=== PATIENT | male | born 1990 | race Caucasian/White ===

== ENCOUNTER 2018-04-07 13:18 | Day surgery (SDC) | payer BC ==
[~2018-04-07 13:18] MED LIST: Lidocaine 1% PF 5 ML VIAL ONE; PROPOFOL 200 MG/20 ML VIAL ONE
[2018-04-07] MEDS ORDERED: Midazolam HCl 2 mg/2 ml Vial ONE (13:59)
[2018-04-07] MEDS ORDERED: Fentanyl 100 MCG/2 ML VIAL ONE (13:59)
--- NOTE | 2018-04-07 14:19 | CON ---
DATE OF CONSULTATION: 04/07/2018 CHIEF COMPLAINT: "Pill stuck in my esophagus." HISTORY OF PRESENT ILLNESS: Mr. Wiley is a 28-year-old man who has had intermittent dysphagia to p ills and meats for years. This morning, he took Ileana-D for the first time for some allergy sympto ms. The pill got stuck in what feels like his lower esophagus and since then he has had spit out his saliva and has been unable to swallow anything beyond that point. He normally takes any antibiotics or pills that he can either liquid or crushed. He usually chews very slowly and take small bites. He feels the food gets stuck every couple of months to a point that he has to vomit the bolus back up . Last month someone gave him a Heimlich maneuver when he felt like he was getting choked somewhat w ith the food bolus. He has had no abdominal pain, diarrhea, constipation or blood in the stool. PAST MEDICAL HISTORY: Otherwise, negative. PAST SURGICAL HISTORY: Negative. FAMILY HISTORY: Negative for GI malignancy or inflammatory bowel disease. SOCIAL HISTORY: He drinks a couple of beers several days per week in the evenings. 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 ALLERGIES: CASHEWS and PISTACHIOS. MEDICATIONS: He does not take medications on a regular basis. He did take the Ileana-D today for t he first time. REVIEW OF SYSTEMS: Negative x10 systems reviewed except as stated in history of present illness. PHYSICAL EXAMINATION: GENERAL: He is in no acute distress. He is alert and oriented x3. HEENT: Eyes have no scleral icterus. Oropharynx is clear, without lesions. He does spitting his sa liva into a bag at the bedside. LUNGS: Clear to auscultation bilaterally. HEART: Regular rate and rhythm. ABDOMEN: Soft, nontender, nondistended. Bowel sounds are present. EXTREMITIES: No lower extremity edema. IMPRESSION: Esophageal foreign body. He has an Ileana-D tablet stuck in his esophagus. He is unab le to tolerate his secretions because of this. Based on his chronic history, I suspect he most likel y has eosinophilic esophagitis. PLAN: 1. Esophagogastroduodenoscopy today. We will biopsy the esophagus and potentially dilate. We will remove the foreign body. 2. He will need to start proton pump inhibitor daily. 3. We will await pathology results for treating further.
--- NOTE | 2018-04-07 14:43 | OP ---
DATE OF PROCEDURE: 04/07/2018 PROCEDURE: Esophagogastroduodenoscopy with removal of foreign body and esophageal dilation over guid ewire and biopsy. PREOPERATIVE DIAGNOSIS: Esophageal foreign body with a pill stuck in the esophagus. OPERATIVE NOTE: Informed consent was obtained from the patient, but he was sedated with total intrav enous anesthesia. The bite block was placed and the endoscope was advanced easily to the distal esop hagus where a pill was found to be impacted in the distal esophageal stricture. The pill was advance d through the stricture and then the scope could be advanced on into the stomach as well. The stomac h was normal including retroflexed views. There was a 2-3 cm hiatal hernia present. The pylorus and first and second portions of the duodenum were normal. The esophageal stricture was dilated to 12.8 and then 14 mm with a Savary dilator. There was an appropriate tear at the dilation site. There we re vertical furrows and concentric rings in the esophagus suggestive of eosinophilic esophagitis. Bi opsies were taken from the lower and upper esophagus to evaluate for eosinophilic esophagitis. IMPRESSION: 1. Esophageal foreign body (a pill, Ileana-D) advanced to the stomach with the endoscope. 2. Distal esophageal stricture dilated to 12.8 mm and then 14 mm with Savary dilators over a wire. There was an appropriate tear visualized at the dilation site. 3. Vertical furrows and concentric rings suggestive of eosinophilic esophagitis, biopsies taken. RECOMMENDATIONS: 1. Await histopathology. 2. Pantoprazole 40 mg granules daily substitution for an alternative PPI capsule that can be opened up and taken with applesauce could be given as well. 3. Follow up in GI clinic in 1 week.
== END 2018-04-07 15:45 | disposition home or self-care (01) ==
LOC: SDC 13:18
PROVIDERS: ATTEND Internal Medicine Gastroenterology
PROC: 0DB38ZX Excision of Lower Esophagus, Via Natural or Artificial Opening Endoscopic, Diagnostic (ICD-10-PCS; principal; 2018-04-07)
PROC: 0DC38ZZ Extirpation of Matter from Lower Esophagus, Via Natural or Artificial Opening Endoscopic (ICD-10-PCS; principal; 2018-04-07)
PROC: 0D738ZZ Dilation of Lower Esophagus, Via Natural or Artificial Opening Endoscopic (ICD-10-PCS; principal; 2018-04-07)
PROC: 0DB18ZX Excision of Upper Esophagus, Via Natural or Artificial Opening Endoscopic, Diagnostic (ICD-10-PCS; principal; 2018-04-07)
DX: T18.100A Unspecified foreign body in esophagus causing compression of trachea, initial encounter (principal); K20.0 Eosinophilic esophagitis; K22.2 Esophageal obstruction; K44.9 Diaphragmatic hernia without obstruction or gangrene; Z91.018 Allergy to other foods
CPT/HCPCS: 88305; 88312; 88313; J2001; J2250; J2704; J3010